=== PATIENT | female | born 1955 | race Caucasian/White ===

== ENCOUNTER 2020-08-27 13:38 | Emergency (ER) | payer OTHER, SELFPAY ==
[2020-08-27 13:39] VITALS: BP 169/82; PULSE 95; RESP 18; TEMP 36.8; O2SAT 98; BMI 19.7
--- NOTE | 2020-08-27 14:14 | HMH.EDUTC ---
[facility] [place] Clinical Impression: Low back strain Qualifiers: Encounter type: initial encounter Qualified Code(s): S39.012A - Strain of muscle, fascia and tendon of lower back, initial encounter Disposition: Home, Self-Care Condition on Discharge: Good Instructions: DI for Muscle Strain Prescriptions: Cyclobenzaprine HCl [Cyclobenzaprine 10mg Tab*] 10 mg PO TIDP PRN 10 Days #30 tab PRN Reason: Muscle Spasm Transmission Status: Pending to [id number] Referrals: Ar Meier [Primary Care Provider] - Forms: Work/School Release Time of Disposition: 14:22 Medical Decision Making - [place] Inquiry Pt receiving controlled substance: No Vital Signs: 08/27/20 13:39 Temperature 98.2 F Temperature Source Tympanic Pulse Rate [Apical] 95 H Respiratory Rate 18 Blood Pressure [Right Arm] 169/82 H Blood Pressure Mean [Right Arm] 111 Blood Pressure Source [Right Arm] Automatic Cuff Blood Pressure Position [Right Arm] Supine 02 Sat by Pulse Oximetry 98 Oxygen Delivery Method Room Air [facility] [place] - General Stated complaint: wc hurt back at work Time Seen by Provider: 08/27/20 14:14 Mode of Arrival: Ambulatory Source of Information: Patient Limitations: No Limitations Description of Symptoms (Recalled from Triage Doc. by RN): back pain, hip pain HEENT Symptoms (Recalled from RN notes): No Resp Symptoms (Recalled from RN notes): No Skin Symptoms (Recalled from RN notes): No MS Symptoms (Recalled from RN notes): Yes (back and hip pain) Functional Status (Recalled from RN notes): na - History of Present Illness Provider Complaint: Patient works at [employer]. Had disoriented patient who became combative and stiffened up. She grabbed her to keep her from sliding to floor and had instant pain in her low back. She did not feel a pop but did feel tearing sensation. Pain is on her left lower back, radiating into left groin and left buttock. She has a previous history of rhizotomy 10 or so years ago. Onset (ago): hour(s) (2) Location: back Radiation: extremity Quality: burning, sharp Consistency: constant Relieving factors: none Exacerbating factors: movement Treatments prior to arrival: none - Related Data Home Medications Medication Instructions Recorded Confirmed ALPRAZolam [Xanax 0.25mg tab] 0.25 mg PO DAILY 08/27/20 08/27/20 Aspirin [Aspirin 81mg chewable 81 mg PO DAILY 08/27/20 08/27/20 tab] Clopidogrel Bisulfate [Plavix 75mg 75 mg PO DAILY 08/27/20 08/27/20 Tab] lisinopriL [Lisinopril] 10 mg PO DAILY 08/27/20 08/27/20 Previous Rx's Medication Instructions Recorded Cyclobenzaprine HCl 10 mg PO TIDP PRN 10 Days #30 tab 08/27/20 [Cyclobenzaprine 10mg Tab*] - Worker's Comp Is this a Worker's Comp case?: Yes Is this an H Worker's Comp?: No Is this a [place] Worker's Comp?: No [facility] History - Hepatitis A Screen Drug use history?: No High risk sexual behaviors?: No History of sexually transmitted infection?: No Currently employed?: No Childcare worker?: No Do you have indoor plumbing?: Yes Do you have electricity?: Yes Attestation statement:: This patient has been screened for Hepatitis A risk factors. I have reviewed the patient's past medical history: Yes ROS Obtained: Yes All systems reviewed & no additional complaints - Musculoskeletal Musculoskeletal: Reports back pain, Reports radiating pain into limb Physical Exam - General General appearance: alert, in no apparent distress - Head Head exam: normocephalic - Eye Eye exam: Present: PERRL - ENT ENT exam: Present: normal oropharynx - Chest Chest inspection: Present: normal inspection, symmetric chest wall rise - Respiratory Respiratory exam: Present: normal lung sounds bilaterally. Absent: respiratory distress - Cardiovascular Cardiovascular exam: Present: regular rate, normal rhythm - Back Exam Back exam: Present: normal inspection, muscle spasm, sciatic notch t
[2020-08-27 14:40] VITALS: BP 169/82; PULSE 95; RESP 18; TEMP 36.8; O2SAT 98
== END 2020-08-27 14:45 | disposition home or self-care (01) ==
PROVIDERS: Emergency Provider Physician Assistant; PCP Family Medicine
DX: S39.012A Strain of muscle, fascia and tendon of lower back, initial encounter (principal); X50.0XXA Overexertion from strenuous movement or load, initial encounter; Y92.69 Other specified industrial and construction area as the place of occurrence of the external cause; Y99.0 Civilian activity done for income or pay; R03.0 Elevated blood-pressure reading, without diagnosis of hypertension
CPT/HCPCS: 99202; G0463